=== PATIENT | male | born 1995 | race American Indian/Alaskan Native ===

== ENCOUNTER 2022-01-16 19:25 | Emergency (ER) | payer SELFPAY ==
--- NOTE | 2022-01-17 02:05 | Emergency Department Report ---
ED General Adult HPI - General Chief complaint: Medical Clearance Stated complaint: It feels like my heart is stopping Time Seen by Provider: 01/17/22 01:41 Source: patient Mode of arrival: Ambulatory Limitations: No Limitations - History of Present Illness Initial comments: The patient is a 27-year-old gentleman with a history of tobacco use, and anxie ty, who presents to the ER today with a complaint of left lateral thoracic pressure, and a sensation like his heart is stopping, coupled with anxiety. The patient is not interested in tobacco cessation. The patient denies travel, surgery, immobilization, DVT/PE risk factors. He associates his anxiety as being a stressor and trigger for the aforementioned symptoms. -: hour(s) Location: back, left Consistency: intermittent Improves with: none Worsens with: other (Anxiety) - Related Data Previous Rx's Medication Instructions Recorded Last Taken Type Acetaminophen [Non-Aspirin Extra 500 mg PO Q6HR PRN #30 tablet 01/17/22 Unknown Rx Strength] Ibuprofen [Motrin] 600 mg PO Q8H PRN #30 tablet 01/17/22 Unknown Rx Nicotine Polacrilex [Nicotine Gum] 4 mg BC PRN #1 pack 01/17/22 Unknown Rx Allergies Allergy/AdvReac Type Severity Reaction Status Date / Time No Known Allergies Allergy Verified 01/16/22 19:31 ED Review of Systems ROS: Stated complaint: AB PAIN Other details as noted in HPI Constitutional: denies: fever Eyes: denies: eye discharge ENT: denies: epistaxis Respiratory: denies: cough Cardiovascular: palpitations, other (Per history of present illness) Gastrointestinal: denies: abdominal pain Musculoskeletal: back pain Psychiatric: anxiety. denies: homicidal thoughts, suicidal thoughts ED Past Medical Hx - Medications Home Medications: Home Medications Medication Instructions Recorded Confirmed Last Taken Type Acetaminophen [Non-Aspirin Extra 500 mg PO Q6HR PRN #30 tablet 01/17/22 Unknown Rx Strength] Ibuprofen [Motrin] 600 mg PO Q8H PRN #30 tablet 01/17/22 Unknown Rx Nicotine Polacrilex [Nicotine Gum] 4 mg BC PRN #1 pack 01/17/22 Unknown Rx ED Physical Exam - General Limitations: No Limitations General appearance: alert, in no apparent distress - Head Head exam: Present: atraumatic, normocephalic - Eye Eye exam: Present: normal appearance, EOMI. Absent: nystagmus - ENT ENT exam: Present: normal exam, normal orophraynx, mucous membranes moist, normal external ear exam - Neck Neck exam: Present: normal inspection, full ROM. Absent: tenderness, meningismus - Respiratory Respiratory exam: Present: normal lung sounds bilaterally. Absent: respiratory distress, wheezes, rales, rhonchi, stridor, decreased breath sounds - Cardiovascular Cardiovascular Exam: Present: regular rate, normal rhythm, normal heart sounds. Absent: bradycardia, tachycardia, irregular rhythm, systolic murmur, diastolic murmur, rubs, gallop - GI/Abdominal GI/Abdominal exam: Present: soft. Absent: distended, tenderness, guarding, rebound, rigid, pulsatile mass - Rectal Rectal exam: Present: deferred - Extremities Exam Extremities exam: Present: normal inspection, full ROM, other (2+ pulses noted in the bilateral upper and lower extremities. There is no palpable cord. negative Homans sign. Muscular compartments are soft. The pelvis is stable.). Absent: pedal edema, calf tenderness - Back Exam Back exam: Present: normal inspection. Absent: tenderness, CVA tenderness (R), CVA tenderness (L), paraspinal tenderness, vertebral tenderness - Neurological Exam Neurological exam: Present: alert, oriented X3, normal gait, other (No facial droop. Tongue midline. Extraocular movements intact bilaterally. Facial sensation intact to light touch in V1, V2, V3 distribution bilaterally. 5 and a 5 strength in 4 extremities. Sensation intact to light touch in 4 extremities.). Absent: motor sensory deficit - Psychiatric Psychiatric exam: Present: flat affect - Skin Skin exam: Present: warm, dry, intact, normal color. Absent: rash ED Course Vital Signs 01/16/22 19:30 Temperature 98.8 F Pulse Rate 79 Respiratory 20 Rate Blood Pressure 140/93 O2 Sat by Pulse 98 Oximetry ED Medical Decision Making - Lab Data Vital Signs 01/16/22 19:30 Temperature 98.8 F Pulse Rate 79 Respiratory 20 Rate Blood Pressure 140/93 O2 Sat by Pulse 98 Oximetry - EKG Data -: EKG Interpreted by Vt - EKG Data 01/17/22 04:29 The EKG is interpreted at 19: 39 Sinus rhythm, rate 89 bpm. Normal intervals, normal axis, normal P wave axis, high left ventricular voltage, minimal motion artifact. Abnormal EKG. Not a STEMI. - Radiology Data Radiology results: pending, report reviewed, image reviewed CHEST 2 VIEWS INDICATION / CLINICAL INFORMATION: Feels like my heart is stopped. COMPARISON: None available. FINDINGS: SUPPORT DEVICES: None. HEART / MEDIASTINUM: No significant abnormality. LUNGS / PLEURA: No significant pulmonary or pleural abnormality. No pneumothorax. ADDITIONAL FINDINGS: No significant additional findings. IMPRESSION: 1. No active cardiopulmonary disease. Signer Name: Kunal King II, MD Signed: 01/17/2022 1:20 AM Workstation Name: [id number] - Medical Decision Making Differential diagnosis, including but not limited to: Anxiety, pneumonia, pneumothorax, encounter for medical screening exam, encounter for behavioral health screening Assessment and plan: 27-year-old gentleman, who is afebrile, with reassuring vital signs, clinically sober, with a GCS of 15, not currently tachycardic, tachypneic or hypoxic, who denies DVT and pulmonary embolism risk factors, who is low risk by Wells criteria for pulmonary embolism, and who is PERC negative, presenting to the ER with a complaint of anxiety, and sensation that his heart has stopped. The patient has an appropriate heart rate and his EKG is essentially unremarkable. His chest x-ray is unremarkable. His physical exam is unremarkable. On initial and subsequent assessments, on cell phone, in no acute distress, appears quite comfortable. Reassurance provided. Not interested in discontinuing tobacco consumption at this time. Does not appear to have an emergent medical condition present at this time. Return precautions reviewed Critical care attestation.: If time is entered above; I have spent that time in minutes in the direct care of this critically ill patient, excluding procedure time. ED Disposition Clinical Impression: Encounter for medical screening examination, Encounter for tobacco use cessation counseling Disposition: HOME / SELF CARE / HOMELESS Is pt being admited?: No Does the pt Need Aspirin: No Condition: Good Instructions: Steps to Quit Smoking, [id number] Additional Instructions: Please discontinue tobacco consumption. Take the medications as needed and directed. Follow-up with your primary care doctor within the next month. Please return to the emergency room right away with new pain, worsened pain, migration of pain, projectile vomiting, change in mental status, confusion, inability tolerate liquid feeds, new, worsened or different symptoms not present on the initial emergency room evaluation Referrals: [facility] [Provider Group] - 3-5 Days [facility] [Provider Group] - 3-5 Days
--- NOTE | 2022-01-17 02:24 | XRay Report ---
CHEST 2 VIEWS INDICATION / CLINICAL INFORMATION: Feels like my heart is stopped. COMPARISON: None available. FINDINGS: SUPPORT DEVICES: None. HEART / MEDIASTINUM: No significant abnormality. LUNGS / PLEURA: No significant pulmonary or pleural abnormality. No pneumothorax. ADDITIONAL FINDINGS: No significant additional findings. IMPRESSION: 1. No active cardiopulmonary disease. Signer Name: Kunal King II, MD Signed: 01/17/2022 2:20 AM Workstation Name: [id number]
[2022-01-17 05:26] VITALS: BP 127/64
--- NOTE | 2022-01-17 09:19 | Electrocardiograph Report ---
[facility] Test Date: 2022-01-16 Test Time: 19:39:06 Pat Name: HUGO MADERA Department: Room: Gender: M [employer]: DANNY : 1995 Requested By: KEVON ESTRADA Order Number: [id number] Reading MD: Abe Carranza Measurements Intervals [place] Rate: 89 P: 53 NE: 150 QRS: 68 QRSD: 85 T: 12 QT: 354 QTc: 431 Interpretive Statements Sinus rhythm No previous ECG available for comparison Electronically Signed On 01-17-2022 9:19:20 EST by Abe Carranza
== END 2022-01-17 05:34 | disposition home or self-care (01) ==
LOC: ED 19:25
DX: Z00.00 Encounter for general adult medical examination without abnormal findings (principal); Z71.6 Tobacco abuse counseling
CPT/HCPCS: 71046; 93005; 99283